=== PATIENT | female | born 1975 | race Caucasian/White ===

== ENCOUNTER → 2016-07-29 | Outpatient (CLI) | payer BC ==
--- OUTSIDE RECORDS SUMMARY | 2016-07-29 13:25 | XMS REPORT | Continuity of Care Document ---
Author Author [facility] Address Unknown Phone Unavailable Allergies Active Description Code Type Severity Reaction Onset Reported/Identified Relationship to Patient Clinical Status Yes No Known Drug Allergies [id number] Drug Allergy Unknown N/ A 07/27/2009 Medications Problems Date Dx Coded Attending Type Code Diagnosis Diagnosed By 07/29/2009 Ot 645.11 POST TERM PREG, DELIV W/WO MENTION OF AN 07/29/2009 Ot 648.91 OTH CURR COND-DELIVERED 07/29/2009 Ot 656.61 EXCESS GRTH-DELIV 07/29/2009 Ot 659.61 ELD MULTIGRAVIDA DEL W MENTION OF ANTEPA 07/29/2009 Ot 664.11 DEL W 2 DEG LACERAT-DEL 07/29/2009 Ot 664.81 OB PERINEAL TRAU NEC-DEL 07/29/2009 Ot V02.51 GROUP B STREPT CARRIER/SUSPECTED CARRIER 07/29/2009 Ot V27.0 DELIVER-SINGLE LIVEBORN 06/22/2013 AZAM SANTANA DO V04.81 FLU SHOT 10/18/2014 Ot 620.2 10/18/2014 Ot 621.2 10/18/2014 SUKUMAR HARPER DO Ot V76.12 10/23/2014 Ot 620.2 10/23/2014 Ot 621.2 10/23/2014 SUKUMAR HARPER DO Ot V76.12 11/03/2014 Ot 620.2 11/03/2014 Ot 621.2 11/03/2014 SUKUMAR HARPER DO Ot V76.12 11/22/2014 Ot 620.2 11/22/2014 Ot 621.2 11/22/2014 SUKUMAR HARPER DO Ot V76.12 11/22/2014 SUKUMAR HARPER DO Ot V76.12 11/22/2014 SUKUMAR HARPER DO Ot V76.12 11/23/2014 Ot 620.2 11/23/2014 Ot 621.2 11/23/2014 HARPER SUKUMAR C Ot V76.12 11/23/2014 HARPER , SUKUMAR C Ot V76.12 01/28/2016 Ot 620.2 OVARIAN CYST NEC/NOS 01/28/2016 Ot 621.2 HYPERTROPHY OF UTERUS 01/28/2016 HARPER SUKUMAR C Ot V76.12 OTH SCREEN MAMMO-MALIGN NEOPLASM OF JJ 01/28/2016 HARPER DO, SUKUMAR C Ot V76.12 OTH SCREEN MAMMO-MALIGN NEOPLASM OF JJ 02/01/2016 Ot 620.2 OVARIAN CYST NEC/NOS 02/01/2016 Ot 621.2 HYPERTROPHY OF UTERUS 02/01/2016 HARPER DO, SUKUMAR C Ot V76.12 OTH SCREEN MAMMO-MALIGN NEOPLASM OF JJ 02/01/2016 HARPER DO, SUKUMAR C Ot V76.12 OTH SCREEN MAMMO-MALIGN NEOPLASM OF JJ 03/31/2016 Ot 620.2 OVARIAN CYST NEC/NOS 03/31/2016 Ot 621.2 HYPERTROPHY OF UTERUS 03/31/2016 HARPER SUKUMAR C Ot V76.12 OTH SCREEN MAMMO-MALIGN NEOPLASM OF JJ 03/31/2016 HARPER DO SUKUMAR C Ot V76.12 OTH SCREEN MAMMO-MALIGN NEOPLASM OF JJ 04/02/2016 Ot 620.2 OVARIAN CYST NEC/NOS 04/02/2016 Ot 621.2 HYPERTROPHY OF UTERUS 04/02/2016 HARPER SUKUMAR C Ot V76.12 OTH SCREEN MAMMO-MALIGN NEOPLASM OF JJ 04/02/2016 HARPER SUKUMAR DUMONT Ot V76.12 OTH SCREEN MAMMO-MALIGN NEOPLASM OF JJ 07/24/2016 [place] DO SUKUMAR C Ot V76.12 OTH SCREEN MAMMO-MALIGN NEOPLASM OF JJ 07/24/2016 HARPER DOTONEA C Ot V76.12 OTH SCREEN MAMMO-MALIGN NEOPLASM OF JJ Procedures Code Description Performed By Performed On 75.69 REPAIR OB LACERATION NEC 07/27/2009 Results Encounters ACCT No. Visit Date/Time Discharge Status Pt. Type Provider Facility Loc./Unit Complaint [id number] 06/22/2013 16:33:00 06/22/2013 23: 59:59 CLS Outpatient AZAM SANTANA DO
--- NOTE | 2016-07-29 14:32 | Diagnostic Imaging Report ---
Pelvic ultrasound. INDICATION: Right lower quadrant pain. FINDINGS: The previous pelvic ultrasound exam performed on 12/31/2010 noted a few subcentimeter follicles on each ovary. There is no acute pelvic abnormality noted. On this exam, there is now a 1.2 x 1.2 x 1.5 cm benign-appearing cyst associated with the left ovary. There are a few subcentimeter follicles again seen on the left ovary. The right ovary, however, could not be identified due to overlying bowel gas. No mass or free fluid collection identified to suggest an acute abnormality. The uterus is nongravid and not enlarged measuring 9.4 x 5.2 x 6.7 cm. The endometrial lining measures 13 mm (normal 5 mm or less). This finding is nonspecific. Correlation with the patient's menstrual cycle would be recommended. The endometrium also measured 13 mm on the previous study. No focal mass involving the uterus to suggest a fibroid. IMPRESSION: 1. There is a benign-appearing 1.2 x 1.2 x 1.5 cm cyst associated with the left ovary. There is no acute pelvic abnormality noted otherwise. 2. The right ovary was not identified. Dictated by: Dictated on workstation # [id number]
== END ==
LOC: RAD 09:49
PROVIDERS: ATTEND Family Medicine
DX: N83.202 Unspecified ovarian cyst, left side (principal)
CPT/HCPCS: 76830; 76856

== ENCOUNTER → 2016-10-03 | Outpatient (CLI) | payer BC ==
--- NOTE | 2016-10-06 13:51 | Diagnostic Imaging Report ---
Bilateral screening mammogram. The current study was also evaluated with a Computer Aided Detection (CAD) system. INDICATION: Screening. No current complaints stated on the questionnaire. COMPARISON: 11/03/14 FINDINGS: The breasts are composed of extremely dense parenchyma which would decrease mammographic sensitivity. Scattered benign-appearing calcifications are seen. Allowing for technique and positional differences, no suspicious change is seen. IMPRESSION: Dense breasts with no definite change. ACR BI-RADS Category 2: Benign findings. Result letter will be mailed to the patient. Note: At least 10% of breast cancer is not imaged by mammography. Dictated by: Dictated on workstation # [id number]
== END ==
LOC: RAD 13:08
PROVIDERS: ATTEND Obstetrics & Gynecology
DX: Z12.31 Encounter for screening mammogram for malignant neoplasm of breast (principal)
CPT/HCPCS: 77067

== ENCOUNTER → 2016-12-22 | Outpatient (CLI) | payer BC ==
--- NOTE | 2016-12-22 15:28 | Diagnostic Imaging Report ---
PROCEDURE: CT abdomen and pelvis without contrast. TECHNIQUE: Multiple contiguous axial images were obtained through the abdomen and pelvis without the use of intravenous contrast. INDICATION: Abdominal pain. Bilateral groin pain. Constipation. Diarrhea. COMPARISON: Pelvic sonogram dated 07/29/2016. FINDINGS: Included portions of the lung bases are clear. CT abdomen: The liver, spleen, pancreas, adrenal glands, and kidneys have an unremarkable noncontrast CT appearance. Small bowel loops are nondistended. Normal appendix is identified. There is no loculated fluid collection, free fluid, nor free air within the abdomen. No abnormal mesenteric or retroperitoneal adenopathy is seen. Bony structures show no acute abnormalities. CT pelvis: Urinary bladder is unopacified. No calculi are seen within the urinary bladder. Uterus has somewhat enlarged appearance. There is also prominent appearance to the hypodense endometrium. There is no loculated fluid collection, free fluid, nor free air within the pelvis. No abnormal adenopathy is seen. Bony structures show no acute abnormalities. IMPRESSION: 1. Enlarged appearance of the uterus with prominent appearance to the hypodense endometrium. Correlation with menstrual cycle is recommended. Further evaluation with pelvic sonogram may be of benefit. 2. Otherwise, no acute abnormalities within the abdomen or pelvis. Dictated by: Dictated on workstation # [id number]
== END ==
LOC: RAD 14:34
PROVIDERS: ATTEND Family Medicine
DX: N85.2 Hypertrophy of uterus (principal); R10.84 Generalized abdominal pain; R19.7 Diarrhea, unspecified
CPT/HCPCS: 74176

== ENCOUNTER → 2017-01-27 | Outpatient (CLI) | payer BC ==
--- NOTE | 2017-01-27 14:06 | Diagnostic Imaging Report ---
PROCEDURE: US abdomen complete. TECHNIQUE: Multiple real-time grayscale images were obtained over the abdomen in various projections. INDICATION: Diarrhea. FINDINGS: There are no previous ultrasound examinations available for comparison. The CT abdomen/pelvis exam performed on 12/22/2016 did note that the uterus was enlarged with a prominent hypodense endometrium. There was no acute abnormality of the abdomen identified. On this study, there is no evidence for cholelithiasis or acute cholecystitis and the common bile duct is not dilated. The liver does not appear to be enlarged. There is no focal mass involving the liver and the biliary tree is not abnormally distended. Spectral and color flow imaging of the portal vein shows that the vein is patent and that there is normal direction of flow within the vein. The spleen, kidneys, pancreas, aorta and inferior vena cava are unremarkable for an acute abnormality. There is no mass or free fluid collection noted. IMPRESSION: 1. There is no acute abnormality of the abdomen. 2. If clinical concern regarding an underlying abnormality of the gallbladder persists and further imaging is desired, then a nuclear medicine hepatobiliary scan will be recommended for further study. Dictated by: Dictated on workstation # [id number]
== END ==
LOC: RAD 07:56
PROVIDERS: ATTEND Internal Medicine Gastroenterology
DX: R10.11 Right upper quadrant pain (principal); R19.7 Diarrhea, unspecified
CPT/HCPCS: 76700

== ENCOUNTER → 2020-07-23 | Outpatient (CLI) | payer BC ==
--- NOTE | 2020-07-23 10:22 | Diagnostic Imaging Report ---
EXAMINATION: Digital mammogram bilateral screening with CAD. INDICATION: Screening. COMPARISON: This study was compared to the prior exams of 11/30/2017, 10/03/2016, and 11/03/2014. PERSONAL HISTORY: At this time, there are no current complaints. FINDINGS: The fibroglandular tissue in both breasts is dense. This does limit the sensitivity of this exam. On the craniocaudad view of the left breast in the medial retroareolar region of the breast, there is a 1 cm oval asymmetry. There may be a corresponding abnormality in the 6 o'clock position on the MLO view. This finding is not clearly visualized on the tomographic images as a discrete mass. Even so, the possibility that there is an underlying abnormality in this area should still be considered. I would recommend that compression views of this area be obtained in the MLO and CC projections for further study as well as a true lateral view. Ultrasound should also be performed. The right breast is unchanged. IMPRESSION: Additional mammographic views and ultrasound of the left breast would be recommended for further study. ACR BI-RADS Category 0: Incomplete. (Needs additional imaging evaluation). Result letter will be mailed to the patient. Note: At least 10% of breast cancer is not imaged by mammography. Dictated by: Dictated on workstation # [id number]
== END ==
LOC: RAD 07:45
PROVIDERS: ATTEND Family Medicine
DX: Z12.31 Encounter for screening mammogram for malignant neoplasm of breast (principal)
CPT/HCPCS: 77063; 77067

== ENCOUNTER → 2020-07-30 | Outpatient (CLI) | payer BC ==
--- NOTE | 2020-07-30 13:59 | Diagnostic Imaging Report ---
INDICATION: Left breast density. Patient presents for additional views. COMPARISON: Correlation is made with the screening study from 07/23/2020. TECHNIQUE: Unilateral left 2D and 3D diagnostic mammography was performed with CAD. This included spot compression CC and ML views as well as conventional 90 degree lateral views. FINDINGS: The additional views fail to demonstrate a discrete mass. There is dense breast tissue in the retroareolar region. No suspicious calcifications are seen. IMPRESSION: No discrete mass is identified with additional views. Even so, directed sonographic interrogation of the retroareolar left breast in the lower inner aspect is recommended and will be performed today. ACR BI-RADS Category 0: Incomplete. (Needs additional imaging evaluation). Result letter will be mailed to the patient. Note: At least 10% of breast cancer is not imaged by mammography. Dictated by: Dictated on workstation # [id number]
--- NOTE | 2020-07-30 14:21 | Diagnostic Imaging Report ---
INDICATION: Left breast density. Correlation is made with diagnostic mammogram earlier the same day and screening mammogram from 07/23/2020. Sonographic interrogation of retroareolar left breast was performed. There is a somewhat ill-defined hypoechoic nodule in the retroareolar left breast 10 o'clock location measuring 7 mm x 4 mm x 3 mm. No internal vascularity is present. No other abnormalities are detected. This may account for the density noted mammographically. Impression: BI-RADS Category 4 Hypoechoic nodule retroareolar 10 o'clock location left breast, indeterminate. This may account for the mammographic density. Tissue sampling is recommended. This would be amenable to ultrasound-guided core biopsy. Dictated by: Dictated on workstation # [id number]
== END ==
LOC: RAD 13:15
PROVIDERS: ATTEND Nurse Practitioner Family
DX: N63.22 Unspecified lump in the left breast, upper inner quadrant (principal)
CPT/HCPCS: 76642; 77065; G0279

== ENCOUNTER → 2020-08-01 | Outpatient (CLI) | payer BC ==
[~2020-08-01] VITALS: Ht 165.1 cm; Wt 59.1 kg
[~2020-08-01] MED LIST: LIDOCAINE 1% INJ 20 ML 20 ML VIAL INJ ONE; LIDOCAINE 1% INJ 20 ML 20 ML VIAL ONE
--- NOTE | 2020-08-01 10:05 | Diagnostic Imaging Report ---
INDICATION: Status post left breast ultrasound-guided biopsy. FINDINGS: Unilateral left 2D CC and ML mammography was performed. Images demonstrate a marker clip in the retroareolar left breast. IMPRESSION: Clip placement, status post ultrasound-guided biopsy. Dictated by: Dictated on workstation # [id number]
--- NOTE | 2020-08-01 10:30 | Diagnostic Imaging Report ---
Indication: Left breast nodule. Patient presents for ultrasound guided biopsy. Patient brought to the sonographic suite and placed on the table in the supine position. Ultrasound imaging of the left breast was performed to evaluate appropriate entry site. The left breast was then prepped and draped in usual sterile fashion. Small amount of 1% lidocaine was utilized for local anesthesia. A total of 4 passes were made into the hypoechoic nodule at the 10:00 retroareolar location of left breast utilizing a 14-gauge achieve needle. A marker clip was then deployed. Hemostasis was obtained using manual compression. The patient tolerated the procedure well and was sent to mammography for postprocedure mammogram. IMPRESSION: Successful ultrasound-guided core biopsy of a hypoechoic nodule at the 10:00 retroareolar location of the left breast. Pathology results are currently pending. Dictated by: Dictated on workstation # [id number]
== END ==
LOC: RAD 09:00
PROVIDERS: ATTEND Family Medicine
DX: N63.22 Unspecified lump in the left breast, upper inner quadrant (principal); Z98.82 Breast implant status
CPT/HCPCS: 19083; 77065; A4648; G0279

== ENCOUNTER → 2021-01-17 | Outpatient (CLI) | payer BC ==
--- NOTE | 2021-01-17 14:06 | Diagnostic Imaging Report ---
Indication: Left breast biopsy with benign result. Study is performed for follow-up. Correlation is made with prior mammogram 07/23/2020. Unilateral left 2-D and 3-D diagnostic mammography was performed with CAD. Left breast is heterogeneously dense, limiting sensitivity of mammography. Post biopsy changes with biopsy clip medial left breast is noted. The parenchymal pattern is stable. No new mass or malignant-appearing microcalcifications are seen. Left axilla is unremarkable. IMPRESSION: BI-RADS Category 2 Stable left mammogram with no mammographic features suspicious for malignancy identified. ACR BI-RADS Category 2: Benign findings. Result letter will be mailed to the patient. Note: At least 10% of breast cancer is not imaged by mammography. Dictated by: Dictated on workstation # [id number]
== END ==
LOC: RAD 13:45
PROVIDERS: ATTEND Family Medicine
DX: N63.20 Unspecified lump in the left breast, unspecified quadrant (principal)
CPT/HCPCS: 77065; G0279

== ENCOUNTER → 2021-09-04 | Outpatient (CLI) | payer BC ==
--- NOTE | 2021-09-05 09:32 | Diagnostic Imaging Report ---
Indication: Routine screening. Comparison is made with prior mammograms from 07/23/2020 and 11/30/2017. 2-D and 3-D bilateral screening mammography was performed CAD. Both breasts are heterogeneously dense, limiting the sensitivity of mammography. A biopsy clip in the medial left breast is again noted. There are occasional benign calcifications in both breasts. No dominant mass or malignant-appearing microcalcifications are seen. Axillae are unremarkable. IMPRESSION: BI-RADS Category 2 No mammographic features suspicious for malignancy are identified. ACR BI-RADS Category 2: Benign findings. Result letter will be mailed to the patient. Note: At least 10% of breast cancer is not imaged by mammography. Dictated by: Dictated on workstation # [id number]
== END ==
LOC: RAD 15:45
PROVIDERS: ATTEND Family Medicine
DX: Z12.31 Encounter for screening mammogram for malignant neoplasm of breast (principal)
CPT/HCPCS: 77063; 77067

== ENCOUNTER → 2022-09-12 | Outpatient (CLI) | payer BC ==
--- NOTE | 2022-09-12 10:02 | Diagnostic Imaging Report ---
PROCEDURE: Pelvic comp/transvaginal sonogram. TECHNIQUE: Complete transabdominal and transvaginal pelvic ultrasound was performed. In addition, limited pelvic Doppler was performed. INDICATION: Heavy menses. Uterus is anteverted measuring 10.2 x 6.5 x 8.0 cm. Endometrium is thickened at 21 mm. There is an area of myometrial heterogeneity in the anterior uterine body measuring 3.3 x 2.3 x 2.7 cm, likely a fibroid. No other fibroids are detected. Ovaries could not be visualized due to overlying bowel gas. No adnexal mass or free fluid is detected. IMPRESSION: 1. Uterine fibroid. 2. Abnormal endometrial thickening of 21 mm. While this could be owing to hyperplasia, neoplasm cannot be entirely excluded. Dictated by: Dictated on workstation # [id number]
--- NOTE | 2022-09-12 10:04 | Diagnostic Imaging Report ---
Indication: Routine screening. Comparison is made with prior mammograms from 09/04/2021 and 07/23/2020. 2-D and 3-D bilateral screening mammography was performed with CAD. Both breasts are heterogeneously dense, limiting the sensitivity of mammography. A biopsy marker clip in the left breast is again noted. There are benign calcifications bilaterally. No mass or malignant-appearing microcalcifications are seen. Axillae are unremarkable. IMPRESSION: BI-RADS Category 2 No mammographic features suspicious for malignancy are identified. ACR BI-RADS Category 2: Benign findings. Result letter will be mailed to the patient. Note: At least 10% of breast cancer is not imaged by mammography. Dictated by: Dictated on workstation # [id number]
== END ==
LOC: RAD 09:00
PROVIDERS: ATTEND Family Medicine
DX: Z12.31 Encounter for screening mammogram for malignant neoplasm of breast (principal); N93.9 Abnormal uterine and vaginal bleeding, unspecified; D25.9 Leiomyoma of uterus, unspecified; R93.89 Abnormal findings on diagnostic imaging of other specified body structures
CPT/HCPCS: 76830; 76856; 77063; 77067

== ENCOUNTER → 2022-12-23 | Outpatient (CLI) | payer BC ==
--- NOTE | 2022-12-23 16:05 | Diagnostic Imaging Report ---
INDICATION: Pain. COMPARISON: None available. TECHNIQUE: Three radiographs centered upon the right hand second digit dated 12/23/2022. FINDINGS: No acute fracture or dislocation. No destructive osseous process. No evidence of a healing fracture. Joint spaces are well maintained. No suspicious radiopaque foreign body. IMPRESSION: Unremarkable examination without acute osseous abnormality. Dictated by: Dictated on workstation # [id number]
== END ==
LOC: RAD 12:45
PROVIDERS: ATTEND Nurse Practitioner Family
DX: M79.89 Other specified soft tissue disorders (principal)
CPT/HCPCS: 73140